=== PATIENT | male | born 1940 | race Caucasian/White ===

== ENCOUNTER 2022-04-30 14:40 | Outpatient (CLI) | payer MEDICARE, SELFPAY ==
[2022-04-30 10:24] LABS: Abs Immature Grans 0.04 10^3/uL (0.0-0.06); Absolute Basophil Count 0.05 10^3/uL (0.0-0.2); Absolute Eosinophil Count 0.31 10^3/uL (0.0-0.7); Absolute Lymphocyte Count 1.51 10^3/uL (1.2-3.4); Absolute Monocyte Count 0.68 10^3/uL (0.1-0.8); Absolute Neutrophil Count 6.59 10^3/uL (1.2-6.7); Basophils % 0.5; Eosinophils % 3.4; HGB 10.6 g/dL (13.5-17.5); Immature Grans % 0.4; Lymphocytes % 16.4; MCH 27.7 pg (27.0-33.0); MCHC 32.1 % (32.0-36.0); MCV 86 fL (80-95); Monocytes % 7.4; Neutrophils % 71.9; Platelet Count 323 10^3/uL (130-400); RBC 3.83 10^6/uL (4.36-5.78); WBC 9.18 10^3/uL (4.4-10.8)
[2022-04-30 10:39] LABS: ALT 18 U/L (16-63); AST 20 U/L (15-37); Alkaline Phosphatase 73 U/L (46-116); Anion Gap 7.9 mmol/L (3-11); BUN 33 mg/dL (7-18); Bilirubin, Total 0.8 mg/dL (0.2-1.0); CO2 29.1 mmol/L (21.0-32.0); CREATININE 1.1 mg/dL (0.70-1.30); Calcium 9.9 mg/dL (8.5-10.1); Chloride 101 mmol/L (98-107); Estimated GFR 67.02 (mL/min/1.73m2); Glucose 113 mg/dL (74-106); Potassium 3.9 mmol/L (3.5-5.1); Sodium 138 mmol/L (136-145); Total Protein 8.7 g/dL (6.4-8.2)
[2022-04-30 23:06] LABS: CEA 282.2 ng/mL (See Note)
== END 2022-04-30 14:41 | disposition home or self-care (01) ==
LOC: LBO 14:40
PROVIDERS: Visit Provider Internal Medicine Hematology & Oncology
DX: C20 Malignant neoplasm of rectum (principal)
CPT/HCPCS: 36415; 80053; 82378; 85025

== ENCOUNTER 2022-05-21 01:25 | Outpatient (CLI) | payer MEDICARE, SELFPAY ==
[2022-05-21 08:44] LABS: Abs Immature Grans 0.06 10^3/uL (0.0-0.06); Absolute Basophil Count 0.07 10^3/uL (0.0-0.2); Absolute Eosinophil Count 0.13 10^3/uL (0.0-0.7); Absolute Lymphocyte Count 1.53 10^3/uL (1.2-3.4); Absolute Neutrophil Count 10.37 10^3/uL (1.2-6.7); Basophils % 0.5; HCT 29.6 % (40.0-50.0); Immature Grans % 0.5; Lymphocytes % 11.6; MCH 29.4 pg (27.0-33.0); MCHC 33.8 % (32.0-36.0); MCV 87 fL (80-95); MPV 8.9 fL (8.0-11.0); Monocytes % 7.7; Neutrophils % 78.7; Platelet Count 358 10^3/uL (130-400); RDW 17.5 % (11.8-14.1); RDW-SD 44.4 fL; WBC 13.18 10^3/uL (4.4-10.8)
[2022-05-21 08:45] LABS: Absolute Monocyte Count 1.01 10^3/uL (0.1-0.8)
[2022-05-21 09:04] LABS: ALT 28 U/L (16-63); AST 21 U/L (15-37); Alkaline Phosphatase 70 U/L (46-116); BUN 55 mg/dL (7-18); Bilirubin, Total 1.1 mg/dL (0.2-1.0); CREATININE 1.7 mg/dL (0.70-1.30); Calcium 9.5 mg/dL (8.5-10.1); Chloride 103 mmol/L (98-107); Estimated GFR 39.75 (mL/min/1.73m2); Glucose 137 mg/dL (74-106); Potassium 3.4 mmol/L (3.5-5.1); Sodium 138 mmol/L (136-145); Total Protein 8.2 g/dL (6.4-8.2)
[2022-05-21 21:03] LABS: CEA 249.7 ng/mL (See Note)
== END 2022-05-21 01:26 | disposition home or self-care (01) ==
LOC: LBO 01:26
PROVIDERS: Internal Medicine Hematology & Oncology; Visit Provider Internal Medicine Medical Oncology
DX: C20 Malignant neoplasm of rectum (principal)
CPT/HCPCS: 36415; 80053; 82378; 85025

== ENCOUNTER 2022-05-26 09:53 | Outpatient (CLI) | payer MEDICARE, SELFPAY ==
[2022-05-26 10:02] LABS: Abs Immature Grans 0.05 10^3/uL (0.0-0.06); Absolute Basophil Count 0.04 10^3/uL (0.0-0.2); Absolute Eosinophil Count 0.07 10^3/uL (0.0-0.7); Absolute Lymphocyte Count 0.86 10^3/uL (1.2-3.4); Absolute Monocyte Count 1.43 10^3/uL (0.1-0.8); Basophils % 0.3; Eosinophils % 0.6; HGB 9.9 g/dL (13.5-17.5); Immature Grans % 0.4; Lymphocytes % 6.9; MCH 30.7 pg (27.0-33.0); MCHC 34.1 % (32.0-36.0); MCV 90 fL (80-95); Monocytes % 11.5; Neutrophils % 80.3; Platelet Count 381 10^3/uL (130-400); RBC 3.22 10^6/uL (4.36-5.78); RDW 21.2 % (11.8-14.1); WBC 12.41 10^3/uL (4.4-10.8)
[2022-05-26 10:15] LABS: Absolute Neutrophil Count 9.97 10^3/uL (1.2-6.7)
[2022-05-26 10:17] LABS: ALT 47 U/L (16-63); AST 35 U/L (15-37); Albumin 3.6 g/dL (3.4-5.0); Alkaline Phosphatase 69 U/L (46-116); Anion Gap 13.2 mmol/L (3-11); BUN 52 mg/dL (7-18); Bilirubin, Total 0.9 mg/dL (0.2-1.0); CO2 19.8 mmol/L (21.0-32.0); CREATININE 1.7 mg/dL (0.70-1.30); Calcium 9.1 mg/dL (8.5-10.1); Chloride 104 mmol/L (98-107); Estimated GFR 39.75 (mL/min/1.73m2); Glucose 138 mg/dL (74-106); Sodium 137 mmol/L (136-145); Total Protein 7.7 g/dL (6.4-8.2)
[2022-05-26 10:21] LABS: Anisocytosis 2+; Diff Comment RBC Morph Reviewed
[2022-05-26 10:23] LABS: Potassium 2.9 mmol/L (3.5-5.1)
== END 2022-05-26 09:54 | disposition home or self-care (01) ==
LOC: LBO 09:54
PROVIDERS: Visit Provider Internal Medicine Hematology & Oncology
DX: C20 Malignant neoplasm of rectum (principal)
CPT/HCPCS: 36415; 80053; 82378; 85025

== ENCOUNTER 2022-05-27 03:08 | Outpatient (CLI) | payer MEDICARE, SELFPAY ==
[2022-05-27 09:19] LABS: Abs Immature Grans 0.02 10^3/uL (0.0-0.06); Absolute Basophil Count 0.04 10^3/uL (0.0-0.2); Absolute Eosinophil Count 0.14 10^3/uL (0.0-0.7); Absolute Lymphocyte Count 0.93 10^3/uL (1.2-3.4); Absolute Monocyte Count 1.18 10^3/uL (0.1-0.8); Absolute Neutrophil Count 7.06 10^3/uL (1.2-6.7); Basophils % 0.4; Eosinophils % 1.5; HCT 26.3 % (40.0-50.0); HGB 8.8 g/dL (13.5-17.5); Immature Grans % 0.2; Lymphocytes % 9.9; MCHC 33.5 % (32.0-36.0); MCV 90 fL (80-95); Monocytes % 12.6; Neutrophils % 75.4; RBC 2.93 10^6/uL (4.36-5.78); RDW 22.4 % (11.8-14.1); RDW-SD 66.7 fL; WBC 9.37 10^3/uL (4.4-10.8)
[2022-05-27 09:51] LABS: Anisocytosis 3+; Diff Comment Diff Reviewed; Hypochromasia 2+; Platelet Count 327 10^3/uL (130-400)
[2022-05-27 09:59] LABS: ALT 45 U/L (16-63); AST 32 U/L (15-37); Albumin 3.3 g/dL (3.4-5.0); Alkaline Phosphatase 65 U/L (46-116); BUN 38 mg/dL (7-18); CREATININE 1.3 mg/dL (0.70-1.30); Calcium 9.1 mg/dL (8.5-10.1); Chloride 108 mmol/L (98-107); Estimated GFR 54.85 (mL/min/1.73m2); Glucose 123 mg/dL (74-106); Potassium 3.4 mmol/L (3.5-5.1); Sodium 137 mmol/L (136-145); Total Protein 7.1 g/dL (6.4-8.2)
== END 2022-05-27 03:09 | disposition home or self-care (01) ==
LOC: LBO 03:09
PROVIDERS: Visit Provider Internal Medicine Hematology & Oncology
DX: C20 Malignant neoplasm of rectum (principal)
CPT/HCPCS: 36415; 80053; 82378; 85025

== ENCOUNTER 2022-07-02 01:34 | Outpatient (CLI) | payer MEDICARE, SELFPAY ==
[2022-07-02 09:34] LABS: Abs Immature Grans 0.02 10^3/uL (0.0-0.06); Absolute Basophil Count 0.04 10^3/uL (0.0-0.2); Absolute Eosinophil Count 0.11 10^3/uL (0.0-0.7); Absolute Lymphocyte Count 1.38 10^3/uL (1.2-3.4); Absolute Monocyte Count 0.91 10^3/uL (0.1-0.8); Absolute Neutrophil Count 6.36 10^3/uL (1.2-6.7); Basophils % 0.5; Eosinophils % 1.2; HCT 30.2 % (40.0-50.0); Immature Grans % 0.2; Lymphocytes % 15.6; MCH 31.3 pg (27.0-33.0); MCHC 33.1 % (32.0-36.0); MCV 94 fL (80-95); MPV 9.3 fL (8.0-11.0); Monocytes % 10.3; Neutrophils % 72.2; Platelet Count 299 10^3/uL (130-400); RDW 21.8 % (11.8-14.1); RDW-SD 74.1 fL; WBC 8.82 10^3/uL (4.4-10.8)
[2022-07-02 09:41] LABS: ALT 18 U/L (16-63); AST 23 U/L (15-37); Alkaline Phosphatase 93 U/L (46-116); Anion Gap 5.6 mmol/L (3-11); BUN 18 mg/dL (7-18); Bilirubin, Total 1.3 mg/dL (0.2-1.0); CO2 29.4 mmol/L (21.0-32.0); CREATININE 1.1 mg/dL (0.70-1.30); Calcium 9.8 mg/dL (8.5-10.1); Chloride 105 mmol/L (98-107); Estimated GFR 66.61 (mL/min/1.73m2); Glucose 103 mg/dL (74-106); Potassium 3.7 mmol/L (3.5-5.1); Sodium 140 mmol/L (136-145); Total Protein 8.2 g/dL (6.4-8.2)
[2022-07-02 09:44] LABS: Anisocytosis 2+; Diff Comment Diff Reviewed; Hypochromasia 1+; Polychromasia Present
[2022-07-02 09:45] LABS: Poikilocytes 1+
[2022-07-02 21:27] LABS: CEA 531.8 ng/mL (See Note)
== END 2022-07-02 01:35 | disposition home or self-care (01) ==
LOC: LBO 01:35
PROVIDERS: Visit Provider Internal Medicine Hematology & Oncology
DX: C20 Malignant neoplasm of rectum (principal)
CPT/HCPCS: 36415; 80053; 82378; 85025

== ENCOUNTER 2022-07-23 01:46 | Outpatient (CLI) | payer OTHER, SELFPAY ==
[2022-07-23 09:23] LABS: Abs Immature Grans 0.03 10^3/uL (0.0-0.06); Absolute Basophil Count 0.06 10^3/uL (0.0-0.2); Absolute Eosinophil Count 0.16 10^3/uL (0.0-0.7); Absolute Lymphocyte Count 1.32 10^3/uL (1.2-3.4); Absolute Monocyte Count 0.77 10^3/uL (0.1-0.8); Absolute Neutrophil Count 5.84 10^3/uL (1.2-6.7); Basophils % 0.7; HCT 30.9 % (40.0-50.0); HGB 10.1 g/dL (13.5-17.5); Immature Grans % 0.4; Lymphocytes % 16.1; MCHC 32.7 % (32.0-36.0); MCV 98 fL (80-95); MPV 9.3 fL (8.0-11.0); Monocytes % 9.4; Neutrophils % 71.4; Platelet Count 315 10^3/uL (130-400); RBC 3.16 10^6/uL (4.36-5.78); WBC 8.18 10^3/uL (4.4-10.8)
[2022-07-23 09:42] LABS: ALT 19 U/L (16-63); AST 40 U/L (15-37); Albumin 3.8 g/dL (3.4-5.0); Alkaline Phosphatase 95 U/L (46-116); Anion Gap 6.6 mmol/L (3-11); BUN 21 mg/dL (7-18); Bilirubin, Total 0.8 mg/dL (0.2-1.0); CO2 29.4 mmol/L (21.0-32.0); Calcium 10.6 mg/dL (8.5-10.1); Chloride 104 mmol/L (98-107); Estimated GFR 74.68 (mL/min/1.73m2); Glucose 111 mg/dL (74-106); Potassium 4.5 mmol/L (3.5-5.1); Sodium 140 mmol/L (136-145); Total Protein 8.7 g/dL (6.4-8.2)
== END 2022-07-23 01:47 | disposition home or self-care (01) ==
LOC: LBO 01:46
PROVIDERS: Visit Provider Internal Medicine Hematology & Oncology
DX: C20 Malignant neoplasm of rectum (principal)
CPT/HCPCS: 36415; 80053; 82378; 85025

== ENCOUNTER 2022-09-10 01:23 | Outpatient (RCR) | payer OTHER, SELFPAY ==
[2022-08-20] MEDS: Normal Saline Flush 10 ML SYR IVP (13:05)
[2022-08-20 13:16] LABS: Abs Immature Grans 0.01 10^3/uL (0.0-0.06); Absolute Basophil Count 0.05 10^3/uL (0.0-0.2); Absolute Eosinophil Count 0.07 10^3/uL (0.0-0.7); Absolute Lymphocyte Count 1.28 10^3/uL (1.2-3.4); Absolute Monocyte Count 1.24 10^3/uL (0.1-0.8); Absolute Neutrophil Count 6.38 10^3/uL (1.2-6.7); Basophils % 0.6; Eosinophils % 0.8; HCT 29.2 % (40.0-50.0); HGB 9.6 g/dL (13.5-17.5); Immature Grans % 0.1; Lymphocytes % 14.2; MCH 31.9 pg (27.0-33.0); MCHC 32.9 % (32.0-36.0); MCV 97 fL (80-95); MPV 9.4 fL (8.0-11.0); Monocytes % 13.7; Neutrophils % 70.6; Platelet Count 253 10^3/uL (130-400); RBC 3.01 10^6/uL (4.36-5.78); RDW 18.2 % (11.8-14.1); WBC 9.03 10^3/uL (4.4-10.8)
[2022-08-20 13:35] LABS: ALT 16 U/L (16-63); AST 20 U/L (15-37); Albumin 3.5 g/dL (3.4-5.0); Alkaline Phosphatase 92 U/L (46-116); Anion Gap 8.1 mmol/L (3-11); BUN 21 mg/dL (7-18); Bilirubin, Total 0.7 mg/dL (0.2-1.0); CO2 28.9 mmol/L (21.0-32.0); CREATININE 1.2 mg/dL (0.70-1.30); Calcium 9.6 mg/dL (8.5-10.1); Chloride 102 mmol/L (98-107); Glucose 98 mg/dL (74-106); Potassium 3.9 mmol/L (3.5-5.1); Sodium 139 mmol/L (136-145); Total Protein 8.7 g/dL (6.4-8.2)
[2022-08-20 16:45] LABS: Iron 24 ug/dL (65-175); Total Iron Binding Capacity 382 ug/dL (250-450); Transferrin Sat 6 % (20-55)
[2022-08-20 17:00] LABS: Ferritin 71 ng/mL (26-388)
[2022-08-21 08:39] LABS: CEA 495.7 ng/mL (See Note)
[2022-09-10] MEDS: Normal Saline Flush 10 ML SYR IVP (08:43)
[2022-09-10 09:08] LABS: Abs Immature Grans 0.01 10^3/uL (0.0-0.06); Absolute Basophil Count 0.04 10^3/uL (0.0-0.2); Absolute Eosinophil Count 0.14 10^3/uL (0.0-0.7); Absolute Lymphocyte Count 1.18 10^3/uL (1.2-3.4); Absolute Monocyte Count 0.86 10^3/uL (0.1-0.8); Basophils % 0.7; Eosinophils % 2.6; HCT 27.7 % (40.0-50.0); HGB 9.2 g/dL (13.5-17.5); Immature Grans % 0.2; Lymphocytes % 21.7; MCH 32.7 pg (27.0-33.0); MCHC 33.2 % (32.0-36.0); MCV 99 fL (80-95); Monocytes % 15.8; Platelet Count 264 10^3/uL (130-400); RBC 2.81 10^6/uL (4.36-5.78); RDW 19.9 % (11.8-14.1); RDW-SD 68.6 fL; WBC 5.43 10^3/uL (4.4-10.8)
[2022-09-10 09:34] LABS: ALT 19 U/L (16-63); AST 26 U/L (15-37); Albumin 3.5 g/dL (3.4-5.0); Alkaline Phosphatase 84 U/L (46-116); Anion Gap 7.2 mmol/L (3-11); BUN 25 mg/dL (7-18); Bilirubin, Total 0.5 mg/dL (0.2-1.0); CO2 27.8 mmol/L (21.0-32.0); CREATININE 1.2 mg/dL (0.70-1.30); Calcium 9.7 mg/dL (8.5-10.1); Chloride 105 mmol/L (98-107); Glucose 106 mg/dL (74-106); Sodium 140 mmol/L (136-145); Total Protein 8.3 g/dL (6.4-8.2)
[2022-09-10 21:03] LABS: CEA 572.3 ng/mL (See Note)
== END 2022-09-10 23:59 | disposition home or self-care (01) ==
LOC: INF 01:23
PROVIDERS: Visit Provider Internal Medicine Hematology & Oncology
DX: Z45.2 Encounter for adjustment and management of vascular access device (principal); C20 Malignant neoplasm of rectum
CPT/HCPCS: 36591; 80053; 82378; 82728; 83540; 83550; 85025

== ENCOUNTER 2022-10-01 01:21 | Outpatient (RCR) | payer OTHER, SELFPAY ==
[2022-10-01] MEDS: Normal Saline Flush 10 ML SYR IVP (09:52)
[2022-10-01 10:14] LABS: Abs Immature Grans 0.02 10^3/uL (0.0-0.06); Absolute Basophil Count 0.04 10^3/uL (0.0-0.2); Absolute Eosinophil Count 0.05 10^3/uL (0.0-0.7); Absolute Monocyte Count 0.83 10^3/uL (0.1-0.8); Absolute Neutrophil Count 5.33 10^3/uL (1.2-6.7); Basophils % 0.6; Eosinophils % 0.7; HCT 25.6 % (40.0-50.0); HGB 8.8 g/dL (13.5-17.5); Immature Grans % 0.3; Lymphocytes % 13.8; MCH 33.7 pg (27.0-33.0); MCHC 34.4 % (32.0-36.0); MCV 98 fL (80-95); Monocytes % 11.4; Neutrophils % 73.2; Platelet Count 222 10^3/uL (130-400); RBC 2.61 10^6/uL (4.36-5.78); RDW 21.2 % (11.8-14.1); RDW-SD 73.8 fL; WBC 7.27 10^3/uL (4.4-10.8)
[2022-10-01 10:31] LABS: ALT 27 U/L (16-63); AST 33 U/L (15-37); Albumin 3.6 g/dL (3.4-5.0); Alkaline Phosphatase 73 U/L (46-116); Anion Gap 7.6 mmol/L (3-11); BUN 19 mg/dL (7-18); Bilirubin, Total 0.9 mg/dL (0.2-1.0); CO2 27.4 mmol/L (21.0-32.0); CREATININE 1.3 mg/dL (0.70-1.30); Calcium 9.5 mg/dL (8.5-10.1); Chloride 104 mmol/L (98-107); Estimated GFR 54.51 (mL/min/1.73m2); Glucose 108 mg/dL (74-106); Potassium 3.3 mmol/L (3.5-5.1); Sodium 139 mmol/L (136-145); Total Protein 7.9 g/dL (6.4-8.2)
[2022-10-01 10:52] LABS: Anisocytosis 2+; Diff Comment RBC Morph Reviewed
== END 2022-10-10 23:59 | disposition home or self-care (01) ==
LOC: INF 01:21
PROVIDERS: Visit Provider Internal Medicine Hematology & Oncology
DX: Z45.2 Encounter for adjustment and management of vascular access device (principal); C20 Malignant neoplasm of rectum
CPT/HCPCS: 36591; 80053; 82378; 85025

== ENCOUNTER 2022-10-22 01:04 | Outpatient (RCR) | payer OTHER, SELFPAY ==
[2022-10-22] MEDS: Normal Saline Flush 10 ML SYR IVP (09:02)
[2022-10-22 09:22] LABS: Abs Immature Grans 0.02 10^3/uL (0.0-0.06); Absolute Basophil Count 0.04 10^3/uL (0.0-0.2); Absolute Eosinophil Count 0.02 10^3/uL (0.0-0.7); Absolute Lymphocyte Count 0.86 10^3/uL (1.2-3.4); Absolute Monocyte Count 1.45 10^3/uL (0.1-0.8); Absolute Neutrophil Count 7.43 10^3/uL (1.2-6.7); Basophils % 0.4; Eosinophils % 0.2; HCT 25.2 % (40.0-50.0); HGB 8.6 g/dL (13.5-17.5); Immature Grans % 0.2; Lymphocytes % 8.8; MCH 34.3 pg (27.0-33.0); MCHC 34.1 % (32.0-36.0); MCV 100 fL (80-95); MPV 9.1 fL (8.0-11.0); Monocytes % 14.8; Neutrophils % 75.6; Platelet Count 199 10^3/uL (130-400); RBC 2.51 10^6/uL (4.36-5.78); RDW 22.5 % (11.8-14.1); RDW-SD 79.9 fL; WBC 9.82 10^3/uL (4.4-10.8)
[2022-10-22 09:30] LABS: ALT 20 U/L (16-63); AST 38 U/L (15-37); Albumin 3.5 g/dL (3.4-5.0); Alkaline Phosphatase 79 U/L (46-116); Anion Gap 9.1 mmol/L (3-11); BUN 30 mg/dL (7-18); Bilirubin, Total 1.5 mg/dL (0.2-1.0); CO2 25.9 mmol/L (21.0-32.0); CREATININE 1.5 mg/dL (0.70-1.30); Calcium 9.6 mg/dL (8.5-10.1); Chloride 102 mmol/L (98-107); Estimated GFR 45.91 (mL/min/1.73m2); Glucose 109 mg/dL (74-106); Potassium 3.5 mmol/L (3.5-5.1); Sodium 137 mmol/L (136-145); Total Protein 7.4 g/dL (6.4-8.2)
[2022-10-22 20:21] LABS: CEA 558.5 ng/mL (See Note)
== END 2022-11-10 23:59 | disposition home or self-care (01) ==
LOC: INF 01:04
PROVIDERS: Visit Provider Internal Medicine Hematology & Oncology
DX: Z45.2 Encounter for adjustment and management of vascular access device (principal); C20 Malignant neoplasm of rectum
CPT/HCPCS: 36591; 80053; 82378; 85025